=== PATIENT | male | born 1965 | race Caucasian/White ===

== ENCOUNTER → 2016-04-23 | Outpatient (CLI) | payer BC ==
[~2016-04-23] MED LIST: ASPI-586 PO; AZIT500T4 PO; DAPA5TAB PO; GLPZ10TCR PO; LINA5TAB PO; LOSA50TA2 PO; MELO15TA14 PO; METF500T4 PO
== END ==
LOC: LAB 08:36
PROVIDERS: ATTEND Family Medicine
DX: E11.65 Type 2 diabetes mellitus with hyperglycemia (principal)
CPT/HCPCS: 36415; 83036

== ENCOUNTER → 2016-08-27 | Outpatient (CLI) | payer BC ==
[2016-08-27 09:25] LABS: BASOPHILS % (AUTO) 0 % (0-2); EOSINOPHILS # (AUTO) 0.1 10^3uL; EOSINOPHILS % (AUTO) 1 % (0-4); LYMPHOCYTES # (AUTO) 1.4 X10^3; MEAN CORPUSCULAR HEMOGLOBIN 31.2 PG (26.0-34.0); MEAN CORPUSCULAR HGB CONC 34.7 g/dL (31.0-37.0); MEAN CORPUSCULAR VOLUME 90 FL (80-100); MEAN PLATELET VOLUME 9.1 FL (6.0-9.5); MONOCYTES # (AUTO) 0.4 X10^3; MONOCYTES % (AUTO) 9 % (3-11); NEUTROPHILS # (AUTO) 2.7 X10^3; NEUTROPHILS % (AUTO) 59 % (51-67); PLATELET COUNT 173 10^3uL (150-450); WHITE BLOOD COUNT 4.66 10^3uL (4.0-11.0)
[2016-08-27 09:55] LABS: ALBUMIN 4.1 g/dL (3.4-5.0); ALKALINE PHOSPHATASE 65 U/L (38-126); ANION GAP 14.3 MEQ/L (3-15); BUN/CREATININE RATIO 24 (10-20); CALCULATED IONIZED CALCIUM 3.9 mg/dL (3.8-4.6); CREATINE KINASE 84 U/L (55-170); TOTAL PROTEIN 7.3 g/dL (6.4-8.5)
--- NOTE | 2016-08-27 10:25 | Diagnostic Imaging Report ---
INDICATION: Yearly physical. COMPARISON: 08/31/2015 FINDINGS: 2 views of the chest are obtained. Heart size is normal. The pulmonary vessels appear unremarkable. There is no pneumothorax, mediastinal widening or pleural fluid demonstrated. The lungs are clear. There are degenerative changes in the spine. IMPRESSION: No radiographic evidence of an acute cardiopulmonary abnormality. No significant interval change from the prior study. Dictated by: Dictated on workstation # [id number]
== END ==
LOC: LAB 09:13
PROVIDERS: ATTEND Family Medicine
DX: Z00.00 Encounter for general adult medical examination without abnormal findings (principal)
CPT/HCPCS: 36415; 71020; 80053; 80061; 82043; 82550; 82977; 83036; 84436; 84443; 85025